=== PATIENT | male | born 1980 | race African-American/Black ===

== ENCOUNTER 2017-03-15 21:29 | Emergency (ER) | payer SELFPAY ==
[2017-03-15 20:21] LABS: BASOPHILS 0.5 %; BASOPHILS ABSOLUTE 0.05 10/3/uL (0.0-0.16); EOSINOPHILS 1.7 %; EOSINOPHILS ABSOLUTE 0.17 10/3/uL (0.0-0.53); ER CBC TAT 0 Hrs 05 Mins; HEMATOCRIT 40.6 % (40.0-51.0); HEMOGLOBIN 13.9 g/dL (13.6-17.8); IMMATURE GRANULOCYTES 0.1 %; IMMATURE GRANULOCYTES ABSOLUTE 0.01 10/3/uL (0.0-0.11); LYMPHOCYTES 28.3 %; LYMPHOCYTES ABSOLUTE 2.82 10/3/uL (0.67-4.30); MEAN CORPUS HGB CONC 34.2 g/dL (32.0-36.0); MEAN CORPUSCULAR HEMOGLOB 31.4 pg (26.0-34.0); MEAN CORPUSCULAR VOLUME 91.6 fL (80-100); MEAN PLATELET VOLUME 11.4 fL (9.2-13.0); MONOCYTES 4.1 %; MONOCYTES ABSOLUTE 0.41 10/3/uL (0.21-1.20); NEUTROPHILS 65.3 %; NEUTROPHILS ABSOLUTE 6.52 10/3/uL (2.02-8.40); RBC DISTRIBUTION WIDTH 13.6 % (12.0-16.0); RED CELL COUNT 4.43 10/6/uL (4.7-6.1)
[2017-03-15 20:26] LABS: MANUAL DIFF NO %; PLATELET COUNT 204 10/3/uL (150-400)
[2017-03-15 20:27] LABS: ASCORBIC ACID (UR NOT ORDER) 20 (NEG); BILIRUBIN, URINE NEGATIVE (NEG); ER URINALYSIS TAT 0 Hrs 11 Mins; KETONE, URINE TRACE MG/DL (NEG); LEUKOCYTE ESTERASE(NOT OR NEG (NEG); NITRITE (URINE) NEG (NEG); WBC (NOT ORDERED) (RFLEX) < 1 (0-5)
[2017-03-15 20:37] LABS: A/G RATIO 1.1 (0.7-1.9); ALBUMIN 4.6 G/DL (3.5-5.0); CHLORIDE, SERUM 108 MMOL/L (96-112); CO2 (CARBON DIOXIDE) 31 MMOL/L (24-34); CREATININE 1.15 MG/DL (0.70-1.30); GFR AFRICAN AMERICAN 94 ML/MIN (>=60); GFR NON AFRICAN AMERICAN 81 ML/MIN (>=60); GLOBULIN 4.3 G/DL (2.5-4.1); SGOT(AST) 16 U/L (5-40); SGPT(ALT) 23 U/L (5-65); SODIUM, SERUM 143 MMOL/L (135-148); TOTAL BILIRUBIN 0.3 MG/DL (0-1.2); TOTAL PROTEIN 8.9 G/DL (6.0-8.5)
[2017-03-15 20:38] LABS: ALKALINE PHOSPHATASE 63 U/L (45-117); BUN (BLOOD UREA NITROGEN) 16 MG/DL (6-23); CALCIUM, SERUM 9.8 MG/DL (8.5-10.4); GLUCOSE, SERUM 118 MG/DL (60-99)
[2017-03-15 21:04] LABS: DILANTIN (PHENYTOIN) 0.8 MCG/ML (10.0-20.0)
[~2017-03-15 21:29] MED LIST: AMOXIL500 MG PO; BIAXIN5 PO; D100 PO; MARI5 PO; MULTIPLE VIT PO; PEPTO-BISMOL TA1 TAB PO; PROAIR HFA INH; PROTONIX PO; REG5 PO; SEROQUEL PO; ZOFRANODT8
== END 2017-03-16 00:07 | disposition home or self-care (01) ==
LOC: ER 21:29
PROVIDERS: Emergency Medicine
DX: G40.909 Epilepsy, unspecified, not intractable, without status epilepticus (principal); K29.70 Gastritis, unspecified, without bleeding; R79.1 Abnormal coagulation profile; F31.9 Bipolar disorder, unspecified; Z88.6 Allergy status to analgesic agent; Z79.899 Other long term (current) drug therapy
CPT/HCPCS: 80053; 80185; 81001; 83690; 85025; 96365; 96375; 99284; A9270-GY; C9113; J2405; Q2009